=== PATIENT | male | born 1940 | race Caucasian/White ===

== ENCOUNTER 2018-01-06 08:00 | Inpatient (IN) | payer OTHER ==
[~2018-01-06] VITALS: Ht 177.8 cm; Wt 65.8 kg
[2018-01-06] MEDS ORDERED: TOPROL XL50 M1 PO (11:05)
[2018-01-06] MEDS ORDERED: SIMVASTATIN20 MG PO (11:05)
[2018-01-06] MEDS ORDERED: COZAAR100 MG PO (11:05)
[2018-01-14] MEDS ORDERED: PERCOCET 5-3251 EACH PO (18:04)
[2018-01-14] MEDS ORDERED: ELIQUIS2.5 MG PO (18:04)
[2018-01-14] MEDS ORDERED: CEFADROXIL500 MG PO (18:04)
== END 2018-01-14 21:03 | DRG 470 ==
LOC: O/R 01-12 05:33 → SURH 01-12 05:33 → O/R 01-12 07:00 → SURH 01-12 10:30
PROVIDERS: Orthopaedic Surgery
PROC: 0MNN0ZZ Release Right Knee Bursa and Ligament, Open Approach (ICD-10-PCS; 2018-01-12)
PROC: 0SRC0J9 Replacement of Right Knee Joint with Synthetic Substitute, Cemented, Open Approach (ICD-10-PCS; principal; 2018-01-12 07:00)
DX: M17.11 Unilateral primary osteoarthritis, right knee (principal); D62 Acute posthemorrhagic anemia; I10 Essential (primary) hypertension; M81.0 Age-related osteoporosis without current pathological fracture